=== PATIENT | female | born 1970 | race Caucasian/White ===

== ENCOUNTER 2016-08-09 04:29 | Emergency (ER) | payer MEDICAID ==
[~2016-08-09] VITALS: Ht 157.5 cm; Wt 90.5 kg
[~2016-08-09 04:29] MED LIST: HYDR-762 PO; IBUP800T25 PO; ONDA4TAB35 PO
[2016-08-09 04:33] VITALS: Ht 157.5 cm; Wt 90.5 kg
[2016-08-09] MEDS ORDERED: ONDANSETRON 4 MG INJ IV ONE (05:24)
[2016-08-09] MEDS ORDERED: morphine 4 MG/ML VIAL IV ONE (05:24)
[2016-08-09 05:30] LABS: ADD SCAN DIFF NO
[2016-08-09 05:34] LABS: ABNORMAL IP MESSAGE 1; BASOPHIL # 0.1 10^3/ul (0.0-0.1); BASOPHILS % 0.6 % (0.0-2.0); EOSINOPHILS # 0.3 10^3/ul (0.0-0.5); EOSINOPHILS % 2.5 % (0.0-7.0); HEMATOCRIT 34.6 % (37.0-47.0); LYMPHOCYTES # 3.1 10^3/ul (0.8-2.9); LYMPHOCYTES % 28.7 % (15.0-51.0); MEAN CORPUSCULAR HGB CONC 28.9 g/dl (32.0-37.0); MEAN CORPUSCULAR VOLUME 69.3 fl (82.0-101.0); MEAN PLATELET VOLUME 10.1 fl (7.4-10.4); MONOCYTE # 0.6 10^3/ul (0.3-0.9); MONOCYTES % 5.6 % (0.0-11.0); NEUTROPHIL # 6.7 10^3/ul (1.6-7.5); NEUTROPHILS % 62.3 % (39.0-77.0); PLATELET COUNT 498 10^3/UL (140-415); RED BLOOD COUNT 4.99 10^6/ul (4.20-5.40); RED CELL DISTRIBUTION WIDTH 17.2 % (11.5-14.5); WHITE BLOOD COUNT 10.8 10^3/ul (4.8-10.8)
[2016-08-09 05:52] LABS: INR 0.9; PROTIME 12.1 Sec (12.2-14.2); PT RATIO 0.9
[2016-08-09 05:53] LABS: PARTIAL THROMBOPLASTIN TIME 34.1 Sec (25.0-35.0)
--- NOTE | 2016-08-09 05:55 | RADRPT ---
PROCEDURE: CHEST - 1 VIEW CLINICAL INDICATION: 45-year-old female with chest pain. TECHNIQUE: A single frontal AP portable view of the chest was performed. The images were reviewed on a PACS workstation. COMPARISON: Chest x-ray May 29, 2015. FINDINGS: The cardiomediastinal silhouette has a normal appearance. There is no evidence for an infiltrate. There is no evidence for congestive heart failure. There is no evidence for pneumothorax. The osseou s structures are intact. IMPRESSION: No evidence for active cardiopulmonary disease. .Real Short MD, MD Date Time Electronically viewed and signed by .Real Short MD, on 08/09/2016 05:55 .M/
[2016-08-09 05:56] LABS: ANION GAP 16 (8-16); BLOOD UREA NITROGEN 12 mg/dl (7-20); CALCIUM 9.1 mg/dl (8.4-10.2); CARBON DIOXIDE 23 mmol/L (21-31); CHLORIDE 110 mmol/L (97-110); CREATININE 0.73 mg/dl (0.44-1.00); GLUCOSE 112 mg/dl (70-220); POTASSIUM 3.8 mmol/L (3.5-5.1); SODIUM 145 mmol/L (135-144)
[2016-08-09] MEDS ORDERED: ALBUTEROL 0.083% (NEB) 2.5 MG/3 ML AMP HHN STA (06:08)
[2016-08-09] MEDS ORDERED: KETOROLAC 30 MG INJ IV STA (06:08)
[2016-08-09] MEDS ORDERED: IPRATROPIUM (NEB) 0.5 MG/2.5 ML AMP HHN ONE (06:30)
[2016-08-09 06:32] LABS: TROPONIN-I < 0.012 ng/ml (0.00-0.12)
[2016-08-09 06:34] LABS: ADD UMIC YES; URINE BILIRUBIN (Dip) NEGATIVE (NEGATIVE); URINE BLOOD (Dip) 3+ (NEGATIVE); URINE COLOR LT. YELLOW (YELLOW); URINE GLUCOSE (Dip) NEGATIVE (NEGATIVE); URINE KETONES (Dip) NEGATIVE (NEGATIVE); URINE LEUKOCYTE ESTERASE (Dip) NEGATIVE (NEGATIVE); URINE NITRITE (Dip) NEGATIVE (NEGATIVE); URINE TOTAL PROTEIN (Dip) NEGATIVE (NEGATIVE); URINE UROBILINOGEN (Dip) 0.2 E.U./dL (0.1-1.0)
[2016-08-09 07:51] VITALS: BP 136/88; PULSE 89; RESP 20; TEMP 98.5
[2016-08-09] MEDS ORDERED: METH500T PO (08:32)
[2016-08-09] MEDS ORDERED: NAPR-688 PO (08:32)
[2016-08-09] MEDS ORDERED: HYDR-906 PO (08:32)
[2016-08-09] MEDS ORDERED: RANI150T9 PO (08:32)
--- NOTE | 2016-08-09 08:42 | ERD ---
ER Documentation Chief Complaint Date/Time DATE: 08/09/16 TIME: 08:36 Chief Complaint left elbow pain extending to left shoulder x 1 week, denies trauma HPI This 45-year-old female presents with left-sided chest wall pain as well as pain radiating down to her left elbow that began 1 week ago. It is made worse by certain twisting motions. She denies any trauma. She has no shortness of breath or vomiting. ROS All systems reviewed and are negative except as per history of present illness. Medications Home Meds Active Scripts Ranitidine Hcl* (Zantac*) 150 Mg Tablet, 150 MG PO BID, #60 TAB Prov:VIJAY WHITE DO 08/09/16 Methocarbamol* (Robaxin*) 500 Mg Tab, 500 MG PO Q8, #20 TAB Prov:VIJAY WHITE DO 08/09/16 Hydrocodone/Acetaminophen ([place] 5-325 Tablet) 1 Each Tablet, 1 EACH PO Q6, #20 TAB Prov:VIJAY WHITE DO 08/09/16 Naproxen* (Naproxen*) 500 Mg Tablet, 500 MG PO BID Y for PAIN, #20 TAB Prov:VIJAY WHITE DO 08/09/16 Discontinued Scripts Ibuprofen* (Ibuprofen*) 800 Mg Tablet, 800 MG PO Q6H Y for PAIN, #30 TAB Prov:ROSELIA JAMES MD 05/29/15 Ondansetron Hcl* (Zofran* ODT) 4 mg -ODT Tab.disper, 4 MG PO Q4H Y for NAUSEA AND OR VOMITING, #20 TAB Prov:ROSELIA JAMES MD 05/29/15 Hydrocodone Bit-Acetaminophen* ([place]*) 10-325 Mg Tablet, 1 TAB PO Q4H Y for PAIN, #12 TAB Prov:ROSELIA JAMES MD 05/29/15 Allergies Allergies: Coded Allergies: No Known Allergy (Unverified , 08/09/16) PMhx/Soc History of Surgery: Yes (CS X3.) Anesthesia Reaction: No Hx Neurological Disorder: No Hx Respiratory Disorders: No Hx Cardiac Disorders: Yes (HIGH CHOLESTEROL.) Hx Psychiatric Problems: No Hx Miscellaneous Medical Probl: No Hx Alcohol Use: No Hx Substance Use: No Hx Tobacco Use: No Smoking Status: Never smoker Physical Exam Vitals Vital Signs Date Time Temp Pulse Resp B/P Pulse Ox O2 Delivery O2 Flow Rate FiO2 08/09/16 07:51 98.5 89 20 136/88 98 Room Air 08/09/16 06:33 70 20 99 21 08/09/16 04:33 97.7 70 20 177/80 98 Physical Exam Const: [] No distress Head: Atraumatic Eyes: Normal Conjunctiva ENT: Normal External Ears, Nose and Mouth. Neck: Full range of motion..~ No meningismus. Resp: Clear to auscultation bilaterally Cardio: Regular rate and rhythm, no murmurs Abd: Soft, left lateral chest wall tenderness there is mild, non distended. Normal bowel sounds Skin: No petechiae or rashes Back: No midline or flank tenderness Ext: No cyanosis, or edema, mild deltoid tenderness and able to move shoulder and elbow but has some pain when moving the elbow. No deformities. Distal pulses intact Neur: Awake and alert and oriented 3, no focal deficits Psych: Normal Mood and Affect Result Diagram: 08/09/1618 08/09/16 0518 Results 24 hrs Laboratory Tests Test 08/09/16 05:18 White Blood Count 10.810^3/ul Red Blood Count 4.9910^6/ul Hemoglobin 10.0g/dl Hematocrit 34.6% Mean Corpuscular Volume 69.3fl Mean Corpuscular Hemoglobin 20.0pg Mean Corpuscular Hemoglobin Concent 28.9g/dl Red Cell Distribution Width 17.2% Platelet Count 18648^3/UL Mean Platelet Volume 10.1fl Neutrophils % 62.3% Lymphocytes % 28.7% Monocytes % 5.6% Eosinophils % 2.5% Basophils % 0.6% Nucleated Red Blood Cells % 0.0/100WBC Neutrophils # 6.710^3/ul Lymphocytes # 3.110^3/ul Monocytes # 0.610^3/ul Eosinophils # 0.310^3/ul Basophils # 0.110^3/ul Nucleated Red Blood Cells # 0.010^3/ul Prothrombin Time 12.1Sec Prothrombin Time Ratio 0.9 INR International Normalized Ratio 0.90 Activated Partial Thromboplast Time 34.1Sec Urine Color LT. YELLOW Urine Clarity CLEAR Urine pH 6.0 Urine Specific [place] <=1.005 Urine Ketones NEGATIVE Urine Nitrite NEGATIVE Urine Bilirubin NEGATIVE Urine Urobilinogen 0.2 E.U./dL Urine Leukocyte Esterase NEGATIVE Urine Microscopic RBC 5-10/HPF Urine Microscopic WBC 0-2/HPF Urine Epithelial Cells OCCASIONAL Urine Hemoglobin 3+ Urine Glucose NEGATIVE% Urine Total Protein NEGATIVE Sodium Level 145mmol/L Potassium Level 3.8mmol/L Chloride Level 110mmol/L Carbon Dioxide Level 23mmol/L Anion Gap 16 Blood Urea Nitrogen 12mg/dl Creatinine 0.73mg/dl Glucose Level 112mg/dl Calcium Level 9.1mg/dl Troponin I < 0.012ng/ml Current Medications Medications (Trade) Dose Ordered Sig/Azam Route PRN Reason Start Time Stop Time Status Last Admin Dose Admin Morphine Sulfate (morphine) 4 mg ONCE ONCE IV 08/09/16 05:24 08/09/16 05:25 DC 08/09/16 05:34 Ondansetron HCl (Zofran Inj) 4 mg ONCE ONCE IV 08/09/16 05:24 08/09/16 05:25 DC 08/09/16 05:33 Albuterol (Proventil 0.083% (Neb)) 5 mg ONCE STAT N 08/09/16 06:08 08/09/16 06:10 DC 08/09/16 06:33 Ipratropium [place] (Atrovent 0.02% (Neb)) 0.5 mg ONCE ONCE N 08/09/16 06:30 08/09/16 06:31 DC 08/09/16 06:32 Ketorolac Tromethamine (Toradol) 30 mg ONCE STAT IV 08/09/16 06:08 08/09/16 06:10 DC Procedures/MDM Believe her chest pain is likely musculoskeletal in origin. Cardiac workup is negative for any ischemia. Believe the patient's pain is musculoskeletal involving soft tissues is there are no bony abnormalities on x-ray. She was made better with morphine and Toradol in the emergency room. I am discharging her with Robaxin, naproxen, [place] for pain. I have given her both verbal and written instructions to obtain an orthopedic referral through primary care doctor and possibly an MRI referral. Patient also has anemia that is not symptomatic currently and I am discharging her with her laboratories and x-ray printed out for her to follow-up. EKG interpretation: Normal sinus rhythm rate of 75, normal axis, no ST or T- wave changes concerning for acute ischemia, Q-wave in V3, normal intervals. monitor tech interpretation: Normal sinus rhythm without arrhythmia Chest x-ray interpretation: I see no bony abnormalities. No acute process. I see no widened mediastinum, no infiltrates, no pneumothorax. Elbow x-ray interpretation: I See no fracture dislocation or foreign bodies. Departure Diagnosis: Primary Impression: Musculoskeletal arm pain Additional Impressions: Chest pain Anemia Condition: Stable Patient Instructions: Chest Pain, Uncertain Cause, Chest Wall Strain, Muscle Strain, Extremity Referrals: [facility] YOU HAVE RECEIVED A MEDICAL SCREENING EXAM AND THE RESULTS INDICATE THAT YOU DO NOT HAVE A CONDITION THAT REQUIRES URGENT TREATMENT IN THE EMERGENCY DEPARTMENT. FURTHER EVALUATION AND TREATMENT OF YOUR CONDITION CAN WAIT UNTIL YOU ARE SEEN IN YOUR DOCTORS OFFICE WITHIN THE NEXT 1-2 DAYS. IT IS YOUR RESPONSIBILITY TO MAKE AN APPOINTMENT FOR FOLOW-UP CARE. IF YOU HAVE A PRIMARY DOCTOR --you should call your primary doctor and schedule an appointment IF YOU DO NOT HAVE A PRIMARY DOCTOR YOU CAN CALL OUR PHYSICIAN REFERRAL HOTLINE AT IF YOU CAN NOT AFFORD TO SEE A PHYSICIAN YOU CAN CHOSE FROM THE FOLLOWING [facility] [address] [facility]. [facility] [address] [facility] [address] [facility] [facility] [address] [facility]. [facility] [address] [facility]. [facility]. [address] Additional Instructions: Llame al doctor MAANA y naomy ger MARGARITA PARA DENTRO DE 2-3 CASTANO. Consigue un referral para un ORTHOPEDIST y tiffani vez un MRI. Dgale a la secretaria que nosotros le instruimos hacer esta margarita.Avise o llame si badillo condicin se empeora antes de la margarita. Regresa aqui si peor o no mejor. VIJAY WHITE DO Aug 09, 2016 08:42
--- NOTE | 2016-08-09 10:17 | RADRPT ---
PROCEDURE: CR Left Elbow CLINICAL INDICATION: Elbow pain TECHNIQUE: AP, lateral, and an oblique radiographs were submitted. COMPARISON: 05/29/2015 FINDINGS: Osseous Structures: The osseous elements appear well mineralized and intact. Joint Spaces: The joint spaces are well maintained. No joint effusion is evident. Soft Tissues: Appear unremarkable. IMPRESSION: Stable and unremarkable left elbow series. Physician Soham Date Time Electronically viewed and signed by Physician Soham on 08/09/2016 10:17 /
== END 2016-08-09 10:12 | disposition home or self-care (01) ==
LOC: FTE 04:29 → E/R 10:12
DX: M79.602 Pain in left arm (principal); R07.9 Chest pain, unspecified; D64.9 Anemia, unspecified
CPT/HCPCS: 36415; 71010; 73080; 80048; 81001; 84484; 84703; 85025; 85610; 85730; 93005; 94664; 96374; 96375; J1885; J2270; J2405; Z7502; Z7610